=== PATIENT | female | born 1940 | race Caucasian/White ===

== ENCOUNTER → 2017-04-21 | Outpatient (CLI) | payer MEDICARE ==
[~2017-04-21] MED LIST: ASP325T PO; ASP81TEC PO; ATEN50TA PO; ATOR80TA PO; BENAZEPRIL HCTZ PO; BENAZEPRIL PO; Eliquis PO; HYDROCHLOROTHIAZIDE PO; LVT.05T PO; MULT-963 PO; OMEP20CA12 PO; PRAV80TA2 PO
--- NOTE | 2017-04-22 16:22 | Diagnostic Imaging Report ---
EXAMINATION: Bilateral screening mammogram with a Computer Aided Detection (CAD) system. INDICATION: Screening. PERSONAL HISTORY: No current complaints stated on the questionnaire. COMPARISON: 05/07/2014. FINDINGS: The breasts are composed of heterogeneously dense parenchyma which may decrease mammographic sensitivity. There are scattered benign-appearing calcifications. Allowing for technique and positional differences, no suspicious change is seen. IMPRESSION: No significant change. ACR BI-RADS Category 2: Benign findings. Result letter will be mailed to the patient. Note: At least 10% of breast cancer is not imaged by mammography. Dictated by: Dictated on workstation # [id number]
== END ==
LOC: RAD 11:25
PROVIDERS: ATTEND Nurse Practitioner Family
DX: Z12.31 Encounter for screening mammogram for malignant neoplasm of breast (principal)
CPT/HCPCS: 77067

== ENCOUNTER → 2018-04-17 | Outpatient (CLI) | payer MEDICARE ==
[~2018-04-17] MED LIST changes: +ASPI-999 PO; +MULT-974 PO
--- NOTE | 2018-04-17 11:01 | Diagnostic Imaging Report ---
INDICATION: Routine screening. COMPARISON: 04/21/2017 and 05/07/2014. TECHNIQUE: 2D and 3D bilateral screening mammography was performed with CAD. FINDINGS: Scattered fibroglandular densities are identified bilaterally. There are scattered benign-appearing calcifications bilaterally which appear to be stable. No spiculated mass or malignant appearing microcalcifications are seen. The axillae are unremarkable. IMPRESSION: No mammographic features suspicious for malignancy are identified. ACR BI-RADS Category 2: Benign findings. Result letter will be mailed to the patient. Note: At least 10% of breast cancer is not imaged by mammography. Dictated by: Dictated on workstation # [id number]
== END ==
LOC: RAD 07:10
PROVIDERS: ATTEND Family Medicine
DX: Z12.31 Encounter for screening mammogram for malignant neoplasm of breast (principal)
CPT/HCPCS: 77067

== ENCOUNTER → 2018-05-18 | Outpatient (CLI) | payer MEDICARE ==
--- NOTE | 2018-05-18 10:59 | Diagnostic Imaging Report ---
INDICATION: 77 years-old Female in need of bone mineral density screening. PREVIOUS STUDIES: 04/24/2015 PROCEDURE: Bone mineral analysis was performed by dual energy radiographic absorptiometry of the lumbar spine and bilateral hips. FINDINGS: Examination of transmission images of the lumbar spine and hips demonstrates degenerative changes. REGION L2-L4 PA total: Bone mineral density g/cm2 0.994 SD from young normal (T) -1.7 SD from age-matched control (Z) -0.1 There has been a 3.1% increase in bone mineral density since the prior study. Right femoral neck: Bone mineral density g/cm2 0.793 SD from young normal (T) -1.8 SD from age-matched control (Z) 0.2 Right hip total: Bone mineral density g/cm2 0.833 SD from young normal (T) -1.4 SD from age-matched control (Z) 0.4 Left femoral neck: Bone mineral density g/cm2 0.794 SD from young normal (T) -1.8 SD from age-matched control (Z) 0.2 Left hip total: Bone mineral density g/cm2 0.911 SD from young normal (T) -0.8 SD from age-matched control (Z) 1.0 There has been a 1.9% decrease in bone mineral density of the mean total hip density compared to the prior study. With the given patient information and according to the FRAX WHO fracture risk assessment tool, for an untreated patient, there is a 13 percent 10-year risk of major osteoporotic fracture and a 3.1 percent 10-year risk of hip fracture. IMPRESSION: 1. Osteopenia. Reductions in bone density to 2.5 or more standard deviations below those of young normal subjects is considered to represent osteoporosis in the absence of other causes of bone loss. Reduction in bone density to 1-2.5 standard deviations below those of young normal subjects fulfills the definition of osteopenia. (WHO Tech Rep Ser 1994; No. 843.6; J Bone [place] Res 1994; 9:1137). Dictated by: Dictated on workstation # [id number]
== END ==
LOC: RAD 08:19
PROVIDERS: ATTEND Nurse Practitioner Family
DX: Z13.820 Encounter for screening for osteoporosis (principal); M85.88 Other specified disorders of bone density and structure, other site
CPT/HCPCS: 77080

== ENCOUNTER → 2019-05-03 | Outpatient (CLI) | payer MEDICARE ==
--- NOTE | 2019-05-03 21:40 | Diagnostic Imaging Report ---
INDICATION: Routine screening. Comparison is made with prior mammogram 04/17/2018 and 04/21/2017. 2-D and 3-D bilateral screening mammography was performed with a Computer Aided Detection (CAD) system. 3-D tomosynthesis was also performed and reviewed. FINDINGS: Both breasts remain heterogeneously dense, limiting the sensitivity of mammography. Scattered benign-appearing calcifications are noted throughout both breasts. No mass or malignant appearing microcalcifications are seen. Axillae are unremarkable. IMPRESSION: No mammographic features suspicious for malignancy are identified. ACR BI-RADS Category 2: Benign findings. Result letter will be mailed to the patient. Note: At least 10% of breast cancer is not imaged by mammography. Dictated by: Dictated on workstation # [id number]
== END ==
LOC: RAD 10:21
PROVIDERS: ATTEND Nurse Practitioner Family
DX: Z12.31 Encounter for screening mammogram for malignant neoplasm of breast (principal)
CPT/HCPCS: 77067

== ENCOUNTER → 2020-05-06 | Outpatient (CLI) | payer MEDICARE ==
--- NOTE | 2020-05-06 13:55 | Diagnostic Imaging Report ---
INDICATION: Routine screening. COMPARISON: 05/03/2019 and 04/17/2018. TECHNIQUE: 2D and 3D bilateral screening mammography was performed with CAD. FINDINGS: Both breasts remain heterogeneously dense, limiting the sensitivity of mammography. There are benign calcifications in both breasts. No mass or malignant appearing microcalcifications are seen. The axillae are unremarkable. IMPRESSION: No mammographic features suspicious for malignancy are identified. ACR BI-RADS Category 2: Benign findings. Result letter will be mailed to the patient. Note: At least 10% of breast cancer is not imaged by mammography. Dictated by: Dictated on workstation # [id number]
== END ==
LOC: RAD 07:27
PROVIDERS: ATTEND Nurse Practitioner Family
DX: Z12.31 Encounter for screening mammogram for malignant neoplasm of breast (principal)
CPT/HCPCS: 77063; 77067

== ENCOUNTER → 2020-07-22 | Outpatient (CLI) | payer MEDICARE ==
[~2020-07-22] VITALS: Ht 160 cm; Wt 69.0 kg
[~2020-07-22] MED LIST changes: +CATHETER FLUSH 10 ML SYR IV PRN; +REGADENOSON 0.4 MG/5 ML SYR (LEXISCAN) IV ONE
[2020-07-22 12:47] VITALS: BP 149/76
--- NOTE | 2020-07-24 12:17 | STRESS TEST ---
DATE OF SERVICE: RESTING AND POST REGADENOSON TECHNETIUM-99M TETROFOSMIN SPECT CT IMAGING ORDERING PHYSICIAN: Dr. Alcala. PRIMARY PHYSICIAN: Dr. Mei. CLINICAL DIAGNOSES: Coronary artery disease, atrial fibrillation. Baseline images were carried out after injection of 10.39 mCi of technetium-99m Tetrofosmin. This was followed by 0.4 mg regadenoson and 32.9 mCi of technetium-99m Tetrofosmin for stress imaging. The electrocardiogram showed sinus rhythm at baseline and did not change significantly with regadenoson infusion. Review of images at rest and following stress does not indicate any significant perfusion defects consistent with myocardial ischemia or infarction. Gated images show normal global left ventricular systolic function with normal regional wall motion. Left ventricular end diastolic volume is 19 mL. Left ventricular ejection fraction is calculated to be 78%. CONCLUSIONS: 1. No evidence of significant myocardial ischemia or infarction on this study. 2. Normal regional wall motion. 3. Normal global left ventricular systolic function with a calculated ejection fraction of 78%. Job ID: [id number] DocumentID: [id number] Dictated Date: 07/24/2020 09:41:40 Community Marketing Coordinator Date: 07/24/2020 12:17:16 Dictated By: RENETTA ALCALA MD, MA, FACP, FACC,
== END ==
LOC: CARD 11:18
PROVIDERS: ATTEND Internal Medicine Cardiovascular Disease
DX: I25.10 Atherosclerotic heart disease of native coronary artery without angina pectoris (principal); I48.91 Unspecified atrial fibrillation; I10 Essential (primary) hypertension; E78.5 Hyperlipidemia, unspecified
CPT/HCPCS: 78452; 93017; A9502

== ENCOUNTER → 2020-08-12 | Outpatient (CLI) | payer MEDICARE ==
[~2020-08-12] MED LIST changes: -CATHETER FLUSH 10 ML SYR IV PRN; -REGADENOSON 0.4 MG/5 ML SYR (LEXISCAN) IV ONE
--- NOTE | 2020-08-12 09:23 | Diagnostic Imaging Report ---
INDICATION: Postmenopausal female. COMPARISON: 05/18/2018 FINDINGS: AP Spine L2-L4: [BMD (g/cm2): 0.988] [T-Score: -1.8] [Z-Score: -0.1] [BMD Previous: 0.994] [BMD % Change: -0.6] LT Hip Neck: [BMD (g/cm2): 0.768] [T-Score: -1.9] [Z-Score: 0.0] LT Hip Total: [BMD (g/cm2):0.919] [T-Score:-0.7] [Z-Score: 1.1] [BMD Previous: 0.911] [BMD % Change: 0.9] RT Hip Neck: [BMD (g/cm2):0.790] [T-Score:-1.8] [Z-Score:0.2] RT Hip Total: [BMD (g/cm2):0.859] [T-score:-1.2] [Z-Score:0.6] [BMD Previous:0.833] [BMD % Change:3.1*] *Indicates significant change from prior examination based on 95% confidence level. World Health Organization criteria for BMD interpretation classify patients as Normal (T-score at or above -1.0), Osteopenic (T-score between -1.0 and -2.5) or Osteoporotic (T-score at or below -2.5). LIMITATIONS AND MODIFICATION: Degenerative change in the lumbar spine may falsely elevate bone density. FRACTURE RISK (FRAX SCORE): The ten year probability of (%): Major Osteoporotic Fracture: [15] Hip Fracture: [4.1] IMPRESSION: 1. Osteopenia (Low bone mass). 2. There has been a statistically significant increase in BMD since prior exam, detailed above. 3. See below National Osteoporosis Foundation guidelines on when to potentially initiate pharmacologic therapy. Based on the National Osteoporosis Foundation Guidelines, pharmacologic treatment should be initiated in any of the following, unless clinical conditions suggest otherwise: * Any patient with prior fragility fracture of the hip or vertebrae. A spine fracture indicates 5X risk for subsequent spine fracture and 2X risk for subsequent hip fracture. * Osteoporosis (T-score <-2.5). * Postmenopausal women and men age 50 and older with low bone mass/osteopenia (T-score between -1.0 and -2.5) by DXA and 10-year major osteoporotic fracture greater than 20% or a 10-year probability of hip fracture greater than 3%. These fracture risks are supplied above in the FRAX score, if applicable. * Clinician judgement and/or patient preferences may indicate treatment for people with 10-year fracture probabilities above or below these levels. Dictated by: Dictated on workstation # [id number]
== END ==
LOC: RAD 08:30
PROVIDERS: ATTEND Family Medicine
DX: M85.89 Other specified disorders of bone density and structure, multiple sites (principal); Z78.0 Asymptomatic menopausal state
CPT/HCPCS: 77080

== ENCOUNTER 2020-09-29 21:47 | Emergency (ER) | payer MEDICARE ==
[~2020-09-29] VITALS: Ht 160 cm; Wt 70.7 kg
--- NOTE | 2020-09-29 22:13 | ED Cardiac General ---
History of Present Illness General Chief Complaint: Cardiac/General Problems Stated Complaint: A-FIB;SOA Source: patient Exam Limitations: no limitations History of Present Illness Date Seen by Provider: Sep 29, 2020 Time Seen by Provider: 22:00 Initial Comments patient is a 80yo [facility] a chief complaint of shortness of breath and palpitations. She has a history of intermittant Atrial fibrillation. She is anticoagulated on eliquis. She states this evening as she was getting ready for bed she felt her heart "thumping" in her chest and became concerned. She took her blood pressure and it was in the 180 systolic range, she states her pulse was in the 80's. No chest pain or pressure. She recently had a stress test in June that was normal with an EF of 78%. she denies any recent illnesses such as fever, chills, cough or sick contacts. She states that she is not having any GI upset, no diarrhea. patient states that currently her heart does not feel like it is beating out of rhythm. She does still feel like she cant get a deep breath. All other ROS reviewed and negative except as stated. Timing/Duration: 4-6 hours Severity: moderate Activities at Onset: none Allergies and Home Medications Allergies Coded Allergies: Sulfa(Sulfonamide Antibiotics) (Unverified Allergy, Unknown, 05/01/13) Home Medications Aspirin 81 Mg Tab.chew, 81 MG PO DAILY Prescribed by: MIREYA QUINTANA on 10/18/17 1446 Atenolol 50 Mg Tablet, 50 MG PO BID, (Reported) Atorvastatin Calcium 80 Mg Tablet, 80 MG PO DAILY, (Reported) Levothyroxine Sodium 50 Mcg Tablet, 50 MCG PO DAILY, (Reported) Multivitamin 1 Each Tablet, 1 EACH PO DAILY, (Reported) Omeprazole 20 Mg Capsule.dr, 20 MG PO DAILY, (Reported) [Benazepril Hctz] , 10-12.5 MG PO DAILY, (Reported) [Eliquis] , 5 MG PO BID, (Reported) Patient Home Medication List Home Medication List Reviewed: Yes Review of Systems Review of Systems Constitutional: no symptoms reported EENTM: No Symptoms Reported Respiratory: SOA at Rest Cardiovascular: Irregular Heart Rate Gastrointestinal: No Symptoms Reported Genitourinary: No Symptoms Reported Musculoskeletal: no symptoms reported Psychiatric/Neurological: No Symptoms Reported All Other Systems Reviewed Negative Unless Noted: Yes Past Kwosffl-Wwiccg-Ktcxfj Hx Patient Social History Recent Foreign Travel: No Contact w/Someone Who Travel: No Immunizations Up To Date Date of Pneumonia Vaccine: May 01, 2015 Date of Influenza Vaccine: Aug 30, 2017 Past Medical History Gastroesophageal Reflux Physical Exam Vital Signs Vital Signs - First Documented 09/29/20 21:55 Temp 35.8 Pulse 89 Resp 16 B/P (MAP) 133/88 (103) Pulse Ox 99 O2 Delivery Room Air Capillary Refill : Height, Weight, BMI Height: 5'3.00" Weight: 156lbs. 0.0oz. 70.712212ns; 26.95 BMI Method: General Appearance: No Apparent Distress, WD/WN, Anxious HEENT: PERRL/EOMI Neck: Normal Inspection Respiratory: Lungs Clear, Normal Breath Sounds, No Accessory Muscle Use, No Respiratory Distress Cardiovascular: Regular Rate, Rhythm, No Edema, No Gallop, No Murmur Gastrointestinal: Normal Bowel Sounds, Non Tender, Soft Extremity: Normal Inspection, Normal Range of Motion, Non Tender Neurologic/Psychiatric: Alert, Oriented x3, No Motor/Sensory Deficits, Normal Mood/Affect, bulk tank driver II-XII Norm as Tested Skin: Normal Color, Warm/Dry Progress/Results/Core Measures Results/Orders My Orders Orders - RADHA CAMARILLO MD Chest 1 View, Ap/Pa Only (09/29/20 22:07) Vital Signs/I&O 09/29/20 21:55 Temp 35.8 Pulse 89 Resp 16 B/P (MAP) 133/88 (103) Pulse Ox 99 O2 Delivery Room Air Progress Progress Note : Time: 22:16 Progress Note 80yo female with a chief complaint of palpitations and shortness of air. Evaluation today includes a physical exam, ekg and single view chest xray. Patient appears comfortable. No acute distress. EKG shows a normal sinus rhyth, at 78bpm, no ectopy. Normal ST segments. Patient looks well but still has mild complaint of shortness ofbreath. Oxygen saturations are 99% on room air. Chest xray will be reviewed but I suspect, in this patient with a history of intermittent atrial fibrillation she may have had a run of afib that has spontaneously resolved. No further work up is indicated. Initial ECG Impression Date: Sep 29, 2020 Initial ECG Impression Time: 21:59 Initial ECG Rate: 78 Initial ECG Rhythm: Normal Sinus Initial ECG Intervals: Normal Initial ECG Impression: Normal Diagnostic Imaging Diagonstic Imaging: Xray Plain Films/CT/US/NM/MRI: chest Comments normal mediastinal structures; clear lung hester; normal bony structures Reviewed: Reviewed by Me Departure Impression Primary Impression: Palpitations Disposition: HOME, SELF-CARE Condition: Stable Departure-Patient Inst. Decision time for Depature: 22:42 Referrals: REJI ROY MD (PCP/Family) Primary Care Physician Patient Instructions: Atrial Fibrillation (DC) Add. Discharge Instructions: Continue taking your daily medications as prescribed. 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 Return to the ER for any further emergent issues. RADHA CAMARILLO MD Sep 29, 2020 22:13
[2020-09-29 22:49] VITALS: BP 144/83
--- NOTE | 2020-09-30 05:51 | Diagnostic Imaging Report ---
Portable erect AP chest at 1046 hours. INDICATION: Shortness of breath. FINDINGS: The heart size is within normal limits and stable when compared to 04/04/2013. The lungs are clear. There is no evidence for failure, pneumonia or for pleural effusion. The mediastinum is not widened. The osseous structures are intact. IMPRESSION: There is no evidence for active disease. Dictated by: Dictated on workstation # [id number]
== END 2020-09-29 22:49 | disposition home or self-care (01) ==
LOC: EDUNIT# 21:47 → ER 21:48
DX: R00.2 Palpitations (principal); F41.9 Anxiety disorder, unspecified; K21.9 Gastro-esophageal reflux disease without esophagitis; Z88.2 Allergy status to sulfonamides; Z79.82 Long term (current) use of aspirin
CPT/HCPCS: 71045; 93005

== ENCOUNTER → 2020-10-06 | Outpatient (CLI) | payer MEDICARE | LOC: CARD 08:10 | PROVIDERS: ATTEND Nurse Practitioner Family | DX: I48.0 Paroxysmal atrial fibrillation (principal) | CPT/HCPCS: 93225; 93226 ==

== ENCOUNTER → 2021-06-08 | Outpatient (CLI) | payer MEDICARE ==
[~2021-06-08] MED LIST changes: +GADOBUTROL 7.5 MMOL/7.5 ML (GADAVIST) VIAL IV ONE
--- NOTE | 2021-06-08 18:12 | Diagnostic Imaging Report ---
PROCEDURE: MR imaging of the brain with and without contrast. TECHNIQUE: Multiplanar, multisequence MR imaging of the brain was performed with and without contrast. INDICATION: Cognitive impairment. Episode of confusion in September 2020. COMPARISON: None. FINDINGS: Moderate generalized parenchymal volume loss is age appropriate. Moderate nonspecific T2 hyperintensities in the supratentorial white matter, compatible with chronic small vessel ischemic change. No abnormal intracranial enhancement. No restricted water diffusion. No hemosiderin deposition or evidence of intracranial hemorrhage. Normal morphology including the major midline structures, sella, posterior fossa, and cerebellopontine angle. No hydrocephalus or extra-axial fluid collections. Normal intracranial flow voids. Postoperative changes in the globes. Mild mucosal thickening in the ethmoid and maxillary sinuses. The mastoids are clear. Normal bone marrow signal. IMPRESSION: 1. No acute intracranial MRI findings. No evidence of an acute infarction or hemorrhage. 2. Age-appropriate parenchymal volume loss and chronic small vessel ischemic change. Dictated by: Dictated on workstation # [id number]
== END ==
LOC: RAD 16:15
PROVIDERS: ATTEND Family Medicine
DX: G31.1 Senile degeneration of brain, not elsewhere classified (principal); I67.82 Cerebral ischemia; G31.84 Mild cognitive impairment of uncertain or unknown etiology
CPT/HCPCS: 70553

== ENCOUNTER → 2021-07-13 | Outpatient (CLI) | payer MEDICARE ==
[~2021-07-13] MED LIST changes: -GADOBUTROL 7.5 MMOL/7.5 ML (GADAVIST) VIAL IV ONE
--- NOTE | 2021-07-13 09:56 | Diagnostic Imaging Report ---
INDICATION: Routine screening. Comparison is made with prior mammogram from 05/06/2020 and 05/03/2019. 2-D and 3-D bilateral screening mammography was performed with CAD. Both breasts are heterogeneously dense, limiting the sensitivity of mammography. There are scattered benign calcifications throughout both breasts. Cardiac monitoring device overlies the medial left breast. No mass or malignant-appearing microcalcifications are seen. Axillae are unremarkable. IMPRESSION: BI-RADS Category 2 No mammographic features suspicious for malignancy are identified. ACR BI-RADS Category 2: Benign findings. Result letter will be mailed to the patient. Note: At least 10% of breast cancer is not imaged by mammography. Dictated by: Dictated on workstation # [id number]
== END ==
LOC: RAD 07:32
PROVIDERS: ATTEND Family Medicine
DX: Z12.31 Encounter for screening mammogram for malignant neoplasm of breast (principal)
CPT/HCPCS: 77063; 77067

== ENCOUNTER → 2022-08-17 | Outpatient (CLI) | payer MEDICARE ==
--- NOTE | 2022-08-17 12:42 | Diagnostic Imaging Report ---
INDICATION: Routine screening. COMPARISON: 07/13/2021 and 05/06/2020. TECHNIQUE: 2D and 3D bilateral screening mammography was performed with CAD. FINDINGS: Both breasts are heterogeneously dense, limiting the sensitivity of mammography. Benign calcifications are noted throughout both breasts. A cardiac loop recorder overlies the medial left breast soft tissues. No spiculated mass or malignant-appearing microcalcifications are identified. The axillae are unremarkable. IMPRESSION: No mammographic features suspicious for malignancy are identified. ACR BI-RADS Category 2: Benign findings. Result letter will be mailed to the patient. Note: At least 10% of breast cancer is not imaged by mammography. Dictated by: Dictated on workstation # [id number]
--- NOTE | 2022-08-17 12:44 | Diagnostic Imaging Report ---
INDICATION: 82-year-old asymptomatic postmenopausal female COMPARISON: 08/12/2020 FINDINGS: AP Spine L1-L4: [BMD (g/cm2): 0.958] [T-Score: -2.0] [Z-Score: -0.3] [BMD Previous: 0.988] [BMD % Change: -3.0*] LT Hip Neck: [BMD (g/cm2): 0.736] [T-Score: -2.2] [Z-Score: 0.0] LT Hip Total: [BMD (g/cm2):0.900] [T-Score:-0.9] [Z-Score: 1.1] [BMD Previous: 0.919] [BMD % Change: -2.1] RT Hip Neck: [BMD (g/cm2):0.759] [T-Score:-2.0] [Z-Score:0.1] RT Hip Total: [BMD (g/cm2):0.842] [T-score:-1.3] [Z-Score:0.7] [BMD Previous:0.859] [BMD % Change:-2.0] *Indicates significant change from prior examination based on 95% confidence level. World Health Organization criteria for BMD interpretation classify patients as Normal (T-score at or above -1.0), Osteopenic (T-score between -1.0 and -2.5) or Osteoporotic (T-score at or below -2.5). LIMITATIONS AND MODIFICATION: None. FRACTURE RISK (FRAX SCORE): The ten year probability of (%): Major Osteoporotic Fracture: [16.9] Hip Fracture: [5.4] IMPRESSION: 1. Osteopenia (Low bone mass). 2. Bone mineral density has decreased by a statistically significant amount, as detailed above. 3. See below National Osteoporosis Foundation guidelines on when to potentially initiate pharmacologic therapy. Based on the National Osteoporosis Foundation Guidelines, pharmacologic treatment should be initiated in any of the following, unless clinical conditions suggest otherwise: * Any patient with prior fragility fracture of the hip or vertebrae. A spine fracture indicates 5X risk for subsequent spine fracture and 2X risk for subsequent hip fracture. * Osteoporosis (T-score <-2.5). * Postmenopausal women and men age 50 and older with low bone mass/osteopenia (T-score between -1.0 and -2.5) by DXA and 10-year major osteoporotic fracture greater than 20% or a 10-year probability of hip fracture greater than 3%. These fracture risks are supplied above in the FRAX score, if applicable. * Clinician judgement and/or patient preferences may indicate treatment for people with 10-year fracture probabilities above or below these levels. Dictated by: Dictated on workstation # [id number]
== END ==
LOC: RAD 08:56
PROVIDERS: ATTEND Nurse Practitioner Family
DX: Z12.31 Encounter for screening mammogram for malignant neoplasm of breast (principal); M85.80 Other specified disorders of bone density and structure, unspecified site; Z78.0 Asymptomatic menopausal state
CPT/HCPCS: 77063; 77067; 77080

== ENCOUNTER → 2023-03-25 | Outpatient (CLI) | payer MEDICARE | LOC: CARD 08:36 | PROVIDERS: ATTEND Nurse Practitioner Family | DX: R06.09 Other forms of dyspnea (principal) | CPT/HCPCS: 93306 ==

== ENCOUNTER → 2023-04-15 | Outpatient (CLI) | payer MEDICARE ==
[~2023-04-15] MED LIST changes: +CATHETER FLUSH 10 ML SYR IVP PRN; +REGADENOSON 0.4 MG/5 ML SYR (LEXISCAN) IV ONE
[2023-04-15 09:14] VITALS: BP 148/85
--- NOTE | 2023-04-18 13:51 | STRESS TEST ---
DATE OF SERVICE: 04/15/2023 RESTING AND POST REGADENOSON TECHNETIUM-99M TETROFOSMIN SPECT CT IMAGING ORDERING PHYSICIAN: Emeli Lyman APRN. PRIMARY PHYSICIAN: Dr. Mei. OTHER PHYSICIAN: Dr. Polk. CLINICAL DIAGNOSIS: Coronary artery disease. Baseline images were carried out after injection of 10.91 mCi of technetium-99m tetrofosmin. This was followed by 0.4 mg regadenoson and 30 mCi of technetium-99m tetrofosmin for stress imaging. The electrocardiogram showed sinus rhythm at baseline. It did not change significantly with the regadenoson infusion. Review of images at rest and following stress does not indicate any distinct perfusion defects consistent with significant myocardial ischemia or infarction. Some degree of breast attenuation is seen both at rest and following regadenoson infusion. Gated images show normal global left ventricular systolic function with normal regional wall motion. Left ventricular ejection fraction is calculated to be 84%. CONCLUSIONS: 1. No evidence of significant myocardial ischemia or infarction on this study. 2. Normal to hyperdynamic LV function with a calculated ejection fraction 84% and without any regional wall motion abnormality. Job ID: [id number] DocumentID: [id number] Dictated Date: 04/18/2023 12:57:50 Room Service Attendant Date: 04/18/2023 13:49:00 Dictated By: RENETTA POLK MD; TY; FACP; FACC;
== END ==
LOC: CARD 06:56
PROVIDERS: ATTEND Nurse Practitioner Family
DX: I25.10 Atherosclerotic heart disease of native coronary artery without angina pectoris (principal)
CPT/HCPCS: 78452; 93017; A9502

== ENCOUNTER 2023-09-21 15:55 | Emergency (ER) | payer MEDICARE ==
[~2023-09-21] VITALS: Ht 160 cm; Wt 70.0 kg
[~2023-09-21 15:55] MED LIST changes: -CATHETER FLUSH 10 ML SYR IVP PRN; -REGADENOSON 0.4 MG/5 ML SYR (LEXISCAN) IV ONE
[2023-09-21] MEDS ORDERED: NS IV 1000 ML 1,000 ML IV SCH (17:15)
[2023-09-21] MEDS ORDERED: ONDANSETRON INJECTION 4 MG/2 ML (SDV) IVP ONE (17:15)
--- NOTE | 2023-09-21 17:15 | ED GI ---
General Chief Complaint: General Problems/Pain Stated Complaint: VOMITING, DIAHHREA Nursing Triage Note: PATIENT STARTED HAVING NAUSEA AND VOMITING AND DIARRHEA YESTERDAY AND NOW HAS LOW GRADE FEVER AND IS FEELING FATIGUE AND GENERALIZED PAIN. Source of Information: Patient Exam Limitations: No Limitations (KENISHA CHRISTIAN APRN) History of Present Illness Date Seen by Provider: Sep 21, 2023 Time Seen by Provider: 16:29 Initial Comments 83-year-old female presents to the ER with complaint of vomiting and diarrhea. States that yesterday at 2 PM she started having a lot of vomiting. She states that she woke up at midnight and was vomiting again and at that time she started having lots of diarrhea. Patient was found to have a low-grade temperature here. Denies known fevers at home. Denies abdominal pain, dysuria, sore throat, runny nose, nasal congestion, body aches. Past medical history includes atrial fibrillation, hypertension, hypothyroidism. (KENISHA CHRISTIAN APRN) Allergies and Home Medications Allergies Coded Allergies: Sulfa (Sulfonamide Antibiotics) (Unverified Allergy, Unknown, 09/21/23) Patient Home Medication List Home Medication List Reviewed: Yes (KENISHA CHRISTIAN APRN) Aspirin (Aspirin) 81 Mg Tab.chew, 81 MG PO DAILY Prescribed by: MIREYA QUINTANA on 10/18/17 1446 Atenolol (Tenormin 50 Mg) 50 Mg Tablet, 50 MG PO BID, (Reported) Entered as Reported by: FLACO DAVIS on 05/01/13 0749 Atorvastatin Calcium (Lipitor 80MG) 80 Mg Tablet, 80 MG PO DAILY, (Reported) Entered as Reported by: ARTUR BENEDICT on 05/01/13 1808 Cephalexin (Cephalexin) 500 Mg Tablet, 500 MG PO BID Prescribed by: Kenisha Natarajan on 09/21/23 1900 Levothyroxine Sodium (Levothyroxine 50 Mcg Tab) 50 Mcg Tablet, 50 MCG PO DAILY, (Reported) Entered as Reported by: FLACO DAVIS on 05/01/13 0751 Multivitamin (Multi-Vitamin Daily) 1 Each Tablet, 1 EACH PO DAILY, (Reported) Entered as Reported by: FLACO DAVIS on 10/18/17 1016 Omeprazole (Omeprazole) 20 Mg Capsule.dr, 20 MG PO DAILY, (Reported) Entered as Reported by: FLACO DAVIS on 05/01/13 0751 Ondansetron (Ondansetron Odt) 4 Mg Tab.rapdis, 4 MG SL Q4H PRN for NAUSEA/VOMITING Prescribed by: Kenisha Natarajan on 09/21/23 1900 [Benazepril Hctz] , 10-12.5 MG PO DAILY, (Reported) Entered as Reported by: LEELA SILVA on 05/01/13 1104 [Eliquis] , 5 MG PO BID, (Reported) Entered as Reported by: SHAHBAZ DURÁN on 05/02/13 1011 Review of Systems Review of Systems Constitutional: see HPI (KENISHA CHRISTIAN APRN) Past Oatolcz-Pdftuy-Buypxc Hx Patient Social History Tobacco Use?: No Use of E-Cig and/or Vaping dev: No Substance use?: No Alcohol Use?: No (KENISHA CHRISTIAN APRN) Immunizations Up To Date Influenza Vaccine Up-to-Date: Yes; Up-to-Date First/Initial COVID19 Vaccinat: 6 SHOTS (KENISHA CHRISTIAN APRN) Past Medical History Surgery/Hospitalization HX: HTN, AFIB, HYPOTHYROID ABLASION, RIGHT KNEE REPLACEMENT, HEART CATH Surgeries: Yes Respiratory: Yes Cardiac: Yes Atrial Fibrillation, High Cholesterol Neurological: No Genitourinary: No Gastrointestinal: Yes Gastroesophageal Reflux Musculoskeletal: No Endocrine: No Cancer: No (KENISHA CHRISTIAN APRN) Physical Exam Vital Signs Vital Signs - First Documented 09/21/23 16:10 Temp 37.9 Pulse 109 Resp 18 B/P (MAP) 144/81 (102) Pulse Ox 95 O2 Delivery Room Air (CARLOS SORIANO MD) Vital Signs Capillary Refill : Less Than 3 Seconds (KENISHA CHRISTIAN APRN) Height/Weight/BMI Height: 5'3.00" Weight: 156lbs. 0.0oz. 70.112084ks; 27.00 BMI Method: General Appearance: WD/WN, no apparent distress Neck: supple, normal inspection Respiratory: lungs clear, normal breath sounds, no respiratory distress, no accessory muscle use Cardiovascular: regular rate, rhythm Gastrointestinal: normal bowel sounds, non tender, soft Extremities: normal range of motion, normal inspection Neurologic/Psychiatric: alert, normal mood/affect Skin: normal color, warm/dry (ANAHI,KENISHA Boykin APRN) Progress/Results/Core Measures Results/Orders Lab Results Laboratory Tests Test 09/21/23 16:43 09/21/23 17:27 09/21/23 17:56 Range/Units Influenza Type A (RT-PCR) Not Detected Not Detecte Influenza Type B (RT-PCR) Not Detected Not Detecte SARS-CoV-2 RNA (RT-PCR) Not Detected Not Detecte White Blood Count 13.4 H 4.3-11.0 10^3/uL Red Blood Count 4.38 3.80-5.11 10^6/uL Hemoglobin 13.2 11.5-16.0 g/dL Hematocrit 39 35-52 % Mean Corpuscular Volume 90 80-99 fL Mean Corpuscular Hemoglobin 30 25-34 pg Mean Corpuscular Hemoglobin Concent 34 32-36 g/dL Red Cell Distribution Width 13.7 10.0-14.5 % Platelet Count 294 130-400 10^3/uL Mean Platelet Volume 9.4 9.0-12.2 fL Immature Granulocyte % (Auto) 0 % Neutrophils (%) (Auto) 91 H 42-75 % Lymphocytes (%) (Auto) 3 L 12-44 % Monocytes (%) (Auto) 5 0-12 % Eosinophils (%) (Auto) 0 0-10 % Basophils (%) (Auto) 0 0-10 % Neutrophils # (Auto) 12.2 H 1.8-7.8 10^3/uL Lymphocytes # (Auto) 0.4 L 1.0-4.0 10^3/uL Monocytes # (Auto) 0.7 0.0-1.0 10^3/uL Eosinophils # (Auto) 0.0 0.0-0.3 10^3/uL Basophils # (Auto) 0.0 0.0-0.1 10^3/uL Immature Granulocyte # (Auto) 0.1 0.0-0.1 10^3/uL Neutrophils % (Manual) 80 % Lymphocytes % (Manual) 2 % Monocytes % (Manual) 3 % Band Neutrophils 15 % Platelet Estimate ADEQUATE Blood Morphology Comment NORMAL Sodium Level 131 L 135-145 MMOL/L Potassium Level 3.3 L 3.6-5.0 MMOL/L Chloride Level 99 98-107 MMOL/L Carbon Dioxide Level 21 21-32 MMOL/L Anion Gap 11 5-14 MMOL/L Blood Urea Nitrogen 18 7-18 MG/DL Creatinine 0.88 0.60-1.30 MG/DL Estimat Glomerular Filtration Rate 66 BUN/Creatinine Ratio 20 Glucose Level 131 H 70-105 MG/DL Calcium Level 9.0 8.5-10.1 MG/DL Corrected Calcium 8.9 8.5-10.1 MG/DL Total Bilirubin 0.3 0.1-1.0 MG/DL Aspartate Amino Transf (AST/SGOT) 31 5-34 U/L Alanine Aminotransferase (ALT/SGPT) 26 0-55 U/L Alkaline Phosphatase 81 40-136 U/L Total Protein 7.2 6.4-8.2 GM/DL Albumin 4.1 3.2-4.5 GM/DL Urine Color YELLOW Urine Clarity CLEAR Urine pH 6.0 5-9 Urine Specific [place] >=1.030 1.016-1.022 Urine Protein 2+ H NEGATIVE Urine Glucose (UA) NEGATIVE NEGATIVE Urine Ketones 1+ H NEGATIVE Urine Nitrite NEGATIVE NEGATIVE Urine Bilirubin NEGATIVE NEGATIVE Urine Urobilinogen 0.2 < = 1.0 MG/DL Urine Leukocyte Esterase TRACE H NEGATIVE Urine RBC (Auto) 3+ H NEGATIVE Urine RBC 5-10 H /HPF Urine WBC 5-10 H /HPF Urine Squamous Epithelial Cells 25-50 H /HPF Urine Crystals PRESENT H /LPF Urine Amorphous Sediment FEW TANNER URATES H /LPF Urine Bacteria FEW H /HPF Urine Casts NONE /LPF Urine Mucus MODERATE H /LPF Urine Yeast RARE /HPF Urine Culture Indicated YES (CARLOS SORIANO MD) Vital Signs/I&O 09/21/23 09/21/23 16:10 19:11 Temp 37.9 Pulse 109 98 Resp 18 18 B/P (MAP) 144/81 (102) 147/78 Pulse Ox 95 95 O2 Delivery Room Air Room Air (CARLOS SORIANO MD) Blood Pressure Mean: 102 Progress Progress Note : Progress Note Patient seen and evaluated, resting comfortably in bed, no acute distress. Based on exam and symptoms, work-up initiated included CBC, CMP, UA, chest x- ray. IV fluids and Zofran ordered. 1858 labs and chest x-ray reviewed. CBC shows mildly elevated WBC 13.4, neutrophil percentage elevated at 91. CMP shows decreased sodium 131, slightly decreased potassium 3.3. COVID and flu negative. Urinalysis shows urine specific gravity greater than 1.030, 2+ protein, 1+ ketones, trace leukocytes, 3+ RBCs, 5-10 WBCs, 25-50 squamous epithelial cells, few bacteria. Patient appears to have mild urinary tract infection. Elevated white count may be related to this or from vomiting. Patient reports she is feeling much better after fluids and Zofran. Oral potassium and first dose of antibiotic ordered. Will discharge with prescription for antibiotic and Zofran. Will also provide a take-home pack of Zofran. Patient is stable for discharge. Discharge instructions and return precautions provided. (KENISHA CHRISTIAN APRN) Departure Impression Primary Impression: Viral gastroenteritis Additional Impression: UTI (urinary tract infection) Disposition: 01 HOME, SELF-CARE Condition: Stable Departure-Patient Inst. Decision time for Depature: 18:58 (KENISHA CHRISTIAN APRN) Referrals: REJI ROY MD (PCP/Family) Primary Care Physician Patient Instructions: Viral Gastroenteritis, Adult (DC) Add. Discharge Instructions: Complete full course of antibiotic as prescribed. Follow-up with your primary care provider after you complete the antibiotic. Follow-up with your primary care provider if symptoms are not improving. Take Zofran as needed for nausea and vomiting. It can cause constipation. Return for recurrent vomiting, severe diarrhea, or any other new, concerning, or worsening symptoms. All discharge instructions reviewed with patient and/or family. Voiced understanding. Scripts Cephalexin (Cephalexin) 500 Mg Tablet 500 MG PO BID for 7 Days, #13 TAB 0 Refills Prov: KENISHA CHRISTIAN APRN 09/21/23 Ondansetron (Ondansetron Odt) 4 Mg Tab.rapdis 4 MG SL Q4H PRN for NAUSEA/VOMITING, #10 TAB 0 Refills Prov: KENISHA CHRISTIAN APRN 09/21/23 ATTENDING PHYSICIAN NOTE: I was physically present as attending physician in the emergency department during the care of this patient, but I was not directly involved in the decision making or delivery of care for this patient. (CARLOS SORIANO MD) Copy Copies To 1: REJI ROY MD, BRITTANY R APRN Sep 21, 2023 17:15 CARLOS SORIANO MD Sep 22, 2023 12:01
[2023-09-21 17:36] LABS: BASOPHILS % (AUTO) 0 % (0-10); EOSINOPHILS % (AUTO) 0 % (0-10); HEMATOCRIT 39 % (35-52); HEMOGLOBIN 13.2 g/dL (11.5-16.0); LYMPHOCYTES # (AUTO) 0.4 10^3/uL (1.0-4.0); LYMPHOCYTES % (AUTO) 3 % (12-44); MEAN CORPUSCULAR HEMOGLOBIN 30 pg (25-34); MEAN CORPUSCULAR HGB CONC 34 g/dL (32-36); MEAN CORPUSCULAR VOLUME 90 fL (80-99); MEAN PLATELET VOLUME 9.4 fL (9.0-12.2); MONOCYTES # (AUTO) 0.7 10^3/uL (0.0-1.0); MONOCYTES % (AUTO) 5 % (0-12); NEUTROPHILS # (AUTO) 12.2 10^3/uL (1.8-7.8); NEUTROPHILS % (AUTO) 91 % (42-75); PLATELET COUNT 294 10^3/uL (130-400); WHITE BLOOD COUNT 13.4 10^3/uL (4.3-11.0)
[2023-09-21 17:57] LABS: ALBUMIN 4.1 GM/DL (3.2-4.5)
[2023-09-21 17:58] LABS: POTASSIUM 3.3 MMOL/L (3.6-5.0)
[2023-09-21 18:00] LABS: TOTAL PROTEIN 7.2 GM/DL (6.4-8.2)
[2023-09-21 18:02] LABS: BILIRUBIN,TOTAL 0.3 MG/DL (0.1-1.0)
[2023-09-21 18:04] LABS: CREATININE SERUM 0.88 MG/DL (0.60-1.30)
[2023-09-21 18:12] LABS: BAND NEUTROPHILS 15 %; LYMPHOCYTES % (MANUAL) 2 %; MONOCYTES % (MANUAL) 3 %; NEUTROPHILS % (MANUAL) 80 %; PLATELET ESTIMATE ADEQUATE; RBC MORPH NORMAL
[2023-09-21 18:16] LABS: CLARITY,URINE CLEAR; COLOR,URINE YELLOW; GLUCOSE, URINE (UA) NEGATIVE (NEGATIVE); KETONES,URINE 1+ (NEGATIVE); NITRITE,URINE NEGATIVE (NEGATIVE); PROTEIN,URINE 2+ (NEGATIVE)
[2023-09-21 18:17] LABS: AMORPHOUS SEDIMENT,UR FEW AMOR URATES /LPF; BACTERIA,URINE FEW /HPF; BILIRUBIN,URINE NEGATIVE (NEGATIVE); LEUKOCYTE ESTERASE ,URINE TRACE (NEGATIVE); SQUAMOUS EPITHELIAL CELL,UR 25-50 /HPF; YEAST,URINE RARE /HPF
--- NOTE | 2023-09-21 18:19 | Diagnostic Imaging Report ---
INDICATION: Vomiting and nausea and fever Frontal chest obtained at 6:12 p.m. The heart is mildly enlarged. A loop recorder seen over the left chest wall. There is no focal infiltrate or pneumothorax or pleural fluid. IMPRESSION: Cardiomegaly with no acute process in the chest. Dictated by: Dictated on workstation # [id number]
[2023-09-21] MEDS ORDERED: RX-ONDANSETRON 4 MG ODT (ZOFRAN) PPK #4 PO STA (18:57)
[2023-09-21] MEDS ORDERED: ONDA4TAB11 SL (19:00)
[2023-09-21] MEDS ORDERED: POTASSIUM CHLORIDE 20 MEQ TABLET PO ONE (19:00)
[2023-09-21] MEDS ORDERED: CEPH500T PO (19:00)
[2023-09-21] MEDS ORDERED: CEPHALEXIN 250 MG CAPSULE PO ONE (19:00)
[2023-09-21 19:11] VITALS: BP 147/78
== END 2023-09-21 19:11 | disposition home or self-care (01) ==
LOC: EDUNIT# 15:55 → ER 15:57
DX: A08.4 Viral intestinal infection, unspecified (principal); N39.0 Urinary tract infection, site not specified; Z88.2 Allergy status to sulfonamides
CPT/HCPCS: 36415; 71045; 80053; 81000; 85007; 85027; 87088; 87636